=== PATIENT | female | born 1960 | race Caucasian/White ===

== ENCOUNTER 2018-05-23 12:08 | Emergency (ER) | payer MEDICARE, OTHER ==
[2018-05-23 12:29] VITALS: TEMP 98
--- NOTE | 2018-05-23 13:08 | ED ---
General Adult HPI - General Chief complaint: Neck Pain/Injury Stated complaint: fall, neck pain Time Seen by Provider: 05/23/18 12:49 Source: patient, RN notes reviewed Mode of arrival: ambulatory Limitations: no limitations - History of Present Illness Initial comments: Patient 57-year-old female presents emergency room today with a chief complaint of head injury that occurred 23 days ago. She does not that she was at her daughter's house at a green party when she stepped backwards on and off of a step hitting the back of her head. Patient does admit that she has had headaches. At time some nausea and vomiting but not over the last few weeks. States that she is just not felt like herself has been very tired. She states at times had some blurred vision. She denies any other complaints or symptoms. Patient denies any recent fever, chills, shortness of breath, chest pain, back pain, abdominal pain, numbness or tingling, dysuria or hematuria, constipation or diarrhea, or any other complaints. - Related Data Allergies Allergy/AdvReac Type Severity Reaction Status Date / Time cortisone Allergy Rash/Hives Verified 05/23/18 12:30 codeine AdvReac Abdominal Verified 05/23/18 12:30 Pain Review of Systems ROS Statement: Those systems with pertinent positive or pertinent negative responses have been documented in the HPI. ROS Other: All systems not noted in ROS Statement are negative. Past Medical History Past Medical History: Diabetes Mellitus, Hypertension, Thyroid Disorder Additional Past Medical History / Comment(s): Arthritis History of Any Multi-Drug Resistant Organisms: None Reported Past Surgical History: Section, Cholecystectomy, Orthopedic Surgery Past Psychological History: Depression Smoking Status: Never smoker Past Alcohol Use History: None Reported Past Drug Use History: None Reported General Exam - General Exam Comments Initial Comments: General: The patient is awake and alert, in no distress, and does not appear acutely ill. Eye: Pupils are equal, round and reactive to light. Extra-ocular movements are intact. No nystagmus. There is normal conjunctiva bilaterally. No signs of icterus. Ears, nose, mouth and throat: There are moist mucous membranes and no oral lesions. Neck: The neck is supple, there is no tenderness or JVD. Cardiovascular: There is a regular rate and rhythm. No murmur, rub or gallop is appreciated. Respiratory: Lungs are clear to auscultation, respirations are non-labored, breath sounds are equal. No wheezes, stridor, rales, or rhonchi. Musculoskeletal: Normal ROM. Normal appearance of the cervical spinal no step- off deformity. Patient does have tenderness at C1-C2. No tenderness to thoracic or lumbar spine. Sensation intact. Strength 5/5. Pulses equal bilaterally 2+. Neurological: A&O x 3. CN II-XII intact, There are no obvious motor or sensory deficits. Coordination appears grossly intact. Speech is normal. Skin: Skin is warm and dry and no rashes or lesions are noted. Psychiatric: Cooperative, appropriate mood & affect, normal judgment. Limitations: no limitations Course Vital Signs 05/23/18 12:27 Temperature 98.0 F Pulse Rate 90 Respiratory 18 Rate Blood Pressure 200/71 O2 Sat by Pulse 98 Oximetry Medical Decision Making - Medical Decision Making Patient's a CT head neck and negative for any acute abnormality. Does show degenerative changes. Results were discussed with the patient. Sinus symptoms of postconcussion syndrome was discussed with patient in detail. She is advised follow-up with the neurologist on-call. Patient advised to return to emergency room if any symptoms worsen or for any other concerns. Patient's blood pressure was initially elevated here in the emergency room and was discussed with the patient about following up with her family physician abdomen. Recheck. She states she took her lisinopril just prior to coming into the hospital. Disposition Clinical Impression: Postconcussion syndrome Disposition: HOME SELF-CARE Condition: Good Instructions: Post Concussion Syndrome (ED) Additional Instructions: Please use medication as discussed. Please follow-up with family doctor in the next 2 days of symptoms have not improved. Please return to emergency room if the symptoms increase or worsen or for any other concerns. Is patient prescribed a controlled substance at d/c from ED?: No Referrals: Nonstaff,Physician [Primary Care Provider] - 1-2 days Darwin Tripp MD [STAFF PHYSICIAN] - 1-2 days Time of Disposition: 14:40
--- NOTE | 2018-05-23 14:04 | CT ---
EXAMINATION TYPE: CT brain rina berry con DATE OF EXAM: 05/23/2018 COMPARISON: NONE HISTORY: Headache, dizziness, and neck pain post fall. CT DLP: 1035.2 mGycm. Automated Exposure Control for Dose Reduction was Utilized. TECHNIQUE: CT scan of the head and cervical spine are performed without contrast. FINDINGS: There is no acute intracranial hemorrhage, mass effect, or midline shift identified. The ventricles and sulci are within normal limits in size. The globes are intact and the visualized sin uses are clear. Cervical spine is visualized in its entirety from C1 through upper thoracic levels and demonstrates s atisfactory alignment without evidence of acute fracture or dislocation. There is mild multilevel de generative disc disease. Small posterior disc osteophyte complexes seen at C5-C6 and C6-C7. Multileve l uncovertebral hypertrophy and facet arthropathy are seen creating minimal neural foraminal narrowin g on the left at C5-C6. Spinal canal is limited on CT. Prevertebral soft tissue appears within normal limits. The C1-C2 articulation is unremarkable. IMPRESSION: 1. There is no acute fracture or dislocation evident in the cervical spine. 2. No acute intracranial hemorrhage, mass effect, or midline shift is seen. 3. Mild multilevel degenerative disc disease of the cervical spine.
[2018-05-23 14:41] VITALS: BP 159/70; PULSE 69; RESP 16
== END 2018-05-23 14:42 | disposition home or self-care (01) ==
LOC: EC 12:08
DX: F07.81 Postconcussional syndrome (principal); M47.812 Spondylosis without myelopathy or radiculopathy, cervical region; Z90.49 Acquired absence of other specified parts of digestive tract; Z98.890 Other specified postprocedural states; Z88.5 Allergy status to narcotic agent; Z88.8 Allergy status to other drugs, medicaments and biological substances; W01.198A Fall on same level from slipping, tripping and stumbling with subsequent striking against other object, initial encounter; Y92.009 Unspecified place in unspecified non-institutional (private) residence as the place of occurrence of the external cause
CPT/HCPCS: 70450; 72125; 99283

== ENCOUNTER 2018-07-28 12:07 | Emergency (ER) | payer MEDICARE, OTHER ==
--- NOTE | 2018-07-28 14:03 | ED ---
Neck Injury/Pain HPI - General Chief Complaint: Neck Pain/Injury Stated Complaint: Fall Time Seen by Provider: 07/28/18 13:08 Source: RN notes reviewed, old records reviewed Mode of arrival: ambulatory Limitations: no limitations - History of Present Illness Initial Comments: This is a 57-year-old female the ER for evaluation. Patient presents today for evaluation regards to neck pain. Patient has history of chronic pain and does take pain control at home. Patient had a trip and fall where she fell backwards landing on her right shoulder right back and neck. Complaining of right-sided neck pain. MD Complaint: neck pain, neck injury -: days(s) (1) Place: other (Fall) Radiation: right lateral, head, right shoulder Severity: moderate Severity scale (1-10): 4 Quality: aching Consistency: constant Improves With: medication OTC/prescribed, rest supine Worsens With: immobilization Context: fall Associated Symptoms: none Treatments Prior to Arrival: none - Related Data Allergies Allergy/AdvReac Type Severity Reaction Status Date / Time cortisone Allergy Rash/Hives Verified 07/28/18 13:00 codeine AdvReac Abdominal Verified 07/28/18 13:00 Pain Review of Systems ROS Statement: Those systems with pertinent positive or pertinent negative responses have been documented in the HPI. ROS Other: All systems not noted in ROS Statement are negative. Past Medical History Past Medical History: Diabetes Mellitus, Hypertension, Thyroid Disorder Additional Past Medical History / Comment(s): Arthritis History of Any Multi-Drug Resistant Organisms: None Reported Past Surgical History: Section, Cholecystectomy, Orthopedic Surgery Past Psychological History: Depression Smoking Status: Never smoker Past Alcohol Use History: None Reported Past Drug Use History: None Reported General Exam - General Exam Comments Initial Comments: Patient does have right shoulder pain right upper thoracic pain right neck pain. Mild decreased range of motion of neck Limitations: no limitations General appearance: alert, in no apparent distress Head exam: Present: atraumatic, normocephalic, normal inspection Eye exam: Present: normal appearance, PERRL, EOMI. Absent: scleral icterus, conjunctival injection, periorbital swelling ENT exam: Present: normal exam, mucous membranes moist Neck exam: Present: normal inspection. Absent: tenderness, meningismus, lymphadenopathy Respiratory exam: Present: normal lung sounds bilaterally. Absent: respiratory distress, wheezes, rales, rhonchi, stridor Cardiovascular Exam: Present: regular rate, normal rhythm, normal heart sounds. Absent: systolic murmur, diastolic murmur, rubs, gallop, clicks GI/Abdominal exam: Present: soft, normal bowel sounds. Absent: distended, tenderness, guarding, rebound, rigid Extremities exam: Present: normal inspection, full ROM, normal capillary refill. Absent: tenderness, pedal edema, joint swelling, calf tenderness Back exam: Present: normal inspection Neurological exam: Present: alert, oriented X3, CN II-XII intact Psychiatric exam: Present: normal affect, normal mood Skin exam: Present: warm, dry, intact, normal color. Absent: rash Course Vital Signs 07/28/18 13:00 Temperature 98 F Pulse Rate 66 Respiratory 18 Rate Blood Pressure 134/65 O2 Sat by Pulse 94 L Oximetry - Reevaluation(s) Reevaluation #1: 07/28/18 14:27 Medical record is reviewed Medical Decision Making - Medical Decision Making 57-year-old female the ER status post fall mechanical trip and fall yesterday. History of prior fall with neck pain and back pain. Patient has no acute disease on computed tomography scan. Patient can be discharged home - Radiology Data Radiology results: report reviewed (CT brain C-spine and thoracic spine is negative for traumatic injury, patient does have extensive arthritic history), image reviewed Disposition Clinical Impression: Strain of neck muscle, Disc disorder of cervical region, Torticollis, Fall Disposition: HOME SELF-CARE Condition: Good Instructions: Cervical Sprain (ED), Cervical Strain (ED) Is patient prescribed a controlled substance at d/c from ED?: No Referrals: Nonstaff,Physician [Primary Care Provider] - 1-2 days
[2018-07-28] MEDS ORDERED: DIAZEPAM 5 MG TAB PO STA (14:27)
[2018-07-28] MEDS ORDERED: KETOROLAC 60 MG/2 ML VIAL IM STA (14:27)
--- NOTE | 2018-07-28 14:50 | CT ---
EXAMINATION TYPE: CT brain wo con DATE OF EXAM: 07/28/2018 COMPARISON: 05/23/2018 HISTORY: 57-year-old female Fall today with head injury. Head, neck and back pain TECHNIQUE: Examination was done in axial plane without intravenous contrast. Coronal and sagittal r econstructions performed. CT DLP: 1154 mGycm Automated exposure control for dose reduction was used. FINDINGS: There is no evidence of acute intracranial hemorrhage, acute ischemic changes, mass, mass-effect, or extra-axial fluid collection. There is no effacement of cerebral sulci or basal subarachnoid cister ns. There is no hydrocephalus. There is no midline shift. Wooten-white matter distinction is preserv ed. Paranasal sinuses and mastoid air cells well pneumatized. Slight leftward nasal septal deviation. Orb its and globes are intact. No calvarial fracture. IMPRESSION: No acute intracranial abnormality seen.
--- NOTE | 2018-07-28 14:58 | CT ---
EXAMINATION TYPE: CT cervical and thoracic spine wo con DATE OF EXAM: 07/28/2018 COMPARISON: Cervical spine 05/23/2018 HISTORY: 57-year-old female with fall today with head injury. Head, neck and back pain. TECHNIQUE: Contiguous axial scanning of the cervical and thoracic spine without IV contrast. Coronal and sagittal reconstructions performed. CT DLP: 1422 mGycm Automated exposure control for dose reduction was used. FINDINGS: Cervical spine: There is a dextroconvex scoliosis of the thoracic spine with some secondary leftward head tilt. No cranial cervical junction and the body, predental space widening, or prevertebral soft tissue swel ling. Degenerative changes at the C1 dens articulation. Alignment is maintained. No acute fracture identified. There is moderate to advanced disc/endplate de generative change at C5-C7 levels with disc osteophyte complexes likely contributing to at least mild , possibly moderate spinal canal stenoses at these levels. Assessment of the spinal canal is limited due to artifact from the patient's shoulders. Additional multilevel facet and uncovertebral joint arthropathy, particularly on the left, lower cerv ical spine Changes resulting in moderate bilateral neuroforaminal stenoses at C5-C6, mild at C6-C7. Thoracic spine: Groundglass and bandlike areas of atelectasis throughout the lungs. Degenerative changes at the sternoclavicular joints. Dextroscoliosis mid thoracic spine as mentioned above. Bridging anterior endplate spondylosis midthoracic spine compatible with dish. Facet arthropathy at multiple levels and degenerative disc disease greatest at the thoracolumbar junc tion. Vertebral body heights are preserved. Large disc osteophyte complex at T12-L1 probably contributing to moderate spinal canal stenosis. No prevertebral or paravertebral soft tissue abnormality seen. Variable mild neuroforaminal stenoses. Probably mild to moderate at some levels due to the facet arthropathy changes. IMPRESSION: 1. CERVICAL SPINE: MODERATE TO ADVANCED SPONDYLOTIC CHANGE MID TO LOWER CERVICAL SPINE. NO ACUTE FRAC TURE OR MALALIGNMENT. 2. THORACIC SPINE: DEXTROCONVEX SCOLIOSIS MIDTHORACIC SPINE. DISH IN THE MID THORACIC SPINE. MULTILEV EL FACET ARTHROPATHY. LARGE DISC OSTEOPHYTE COMPLEX AT T12-L1 POSSIBLY CONTRIBUTING TO MODERATE SPINA L CANAL STENOSIS. NO ACUTE FRACTURE OR MALALIGNMENT OF THE THORACIC SPINE.
[2018-07-28 15:43] VITALS: BP 162/60; PULSE 61; RESP 16; TEMP 98
== END 2018-07-28 15:48 | disposition home or self-care (01) ==
LOC: EC 12:07
DX: S16.1XXA Strain of muscle, fascia and tendon at neck level, initial encounter (principal); M43.6 Torticollis; M50.90 Cervical disc disorder, unspecified, unspecified cervical region; Z88.8 Allergy status to other drugs, medicaments and biological substances; Z88.5 Allergy status to narcotic agent; W01.0XXA Fall on same level from slipping, tripping and stumbling without subsequent striking against object, initial encounter; Y92.89 Other specified places as the place of occurrence of the external cause
CPT/HCPCS: 72128; 72125; 70450; 99284; 96372; J1885

== ENCOUNTER 2018-08-09 17:55 | Emergency (ER) | payer MEDICARE, OTHER ==
[2018-08-09 18:15] VITALS: BP 184/79; PULSE 76; RESP 18; TEMP 99.3
--- NOTE | 2018-08-09 19:24 | ED ---
General Adult HPI - General Chief complaint: Upper Respiratory Infection Stated complaint: Congestion in chest Time Seen by Provider: 08/09/18 18:15 Source: patient, RN notes reviewed Mode of arrival: ambulatory Limitations: no limitations - History of Present Illness Initial comments: This is a 57-year-old female presents emergency Department complaining of conjunctivitis in both eyes sore throat and a dry cough. Patient denies a fever chills. Patient denies any difficulty breathing shortness breath per patient denies chest pain. Patient denies any abdominal pain patient denies nausea vomiting diarrhea. Patient denies any lightheadedness or dizziness. Patient denies - Related Data Home Medications Medication Instructions Recorded Confirmed Cinnamon Bark [Cinnamon] 500 mg PO DAILY 08/09/18 08/09/18 HYDROcodone/APAP 10-325MG [[place] 1 tab PO BID 08/09/18 08/09/18 10-325] Levothyroxine Sodium [Synthroid] 150 mg PO DAILY 08/09/18 08/09/18 Lisinopril [Zestril] 20 mg PO DAILY 08/09/18 08/09/18 Meloxicam [Mobic] 7.5 mg PO DAILY 08/09/18 08/09/18 Simvastatin [Zocor] 20 mg PO HS 08/09/18 08/09/18 Ubidecarenone [Co Q-10] 100 mg PO DAILY 08/09/18 08/09/18 glyBURIDE [Diabeta] 5 mg PO DAILY 08/09/18 08/09/18 metFORMIN HCL 1,000 mg PO BID 08/09/18 08/09/18 Allergies Allergy/AdvReac Type Severity Reaction Status Date / Time cortisone Allergy Rash/Hives Verified 08/09/18 19:50 codeine AdvReac Abdominal Verified 08/09/18 19:50 Pain latex AdvReac Anaphylaxis Verified 08/09/18 19:51 Review of Systems ROS Statement: Those systems with pertinent positive or pertinent negative responses have been documented in the HPI. ROS Other: All systems not noted in ROS Statement are negative. Past Medical History Past Medical History: Diabetes Mellitus, Hypertension, Thyroid Disorder Additional Past Medical History / Comment(s): Arthritis History of Any Multi-Drug Resistant Organisms: None Reported Past Surgical History: Section, Cholecystectomy, Orthopedic Surgery Past Psychological History: Depression Smoking Status: Never smoker Past Alcohol Use History: None Reported Past Drug Use History: None Reported General Exam - General Exam Comments Initial Comments: GENERAL: Patient is well-developed and well-nourished. Patient is nontoxic and well- hydrated and is in no acute distress. ENT: Neck is soft and supple. No significant lymphadenopathy is noted. Oropharynx is clear. Moist mucous membranes. Neck has full range of motion without eliciting any pain. EYES: The sclera were anicteric and conjunctiva were pink and moist. Extraocular movements were intact and pupils were equal round and reactive to light. Eyelids were unremarkable. PULMONARY: Unlabored respirations. Good breath sounds bilaterally. No audible rales rhonchi or wheezing was noted. CARDIOVASCULAR: There is a regular rate and rhythm without any murmurs gallops or rubs. SKIN: Skin is clear with no lesions or rashes and otherwise unremarkable. NEUROLOGIC: Patient is alert and oriented x3. Cranial nerves II through XII are grossly intact. Motor and sensory are also intact. Normal speech, volume and content. Symmetrical smile. MUSCULOSKELETAL: Normal extremities with adequate strength and full range of motion. LYMPHATICS: No significant lymphadenopathy is noted PSYCHIATRIC: Normal psychiatric evaluation. Limitations: no limitations Course Vital Signs 08/09/18 18:13 Temperature 99.3 F Pulse Rate 76 Respiratory 18 Rate Blood Pressure 184/79 O2 Sat by Pulse 95 Oximetry Medical Decision Making - Medical Decision Making Chest x-ray shows no acute abnormality Disposition Clinical Impression: Conjunctivitis, Viral syndrome Disposition: HOME SELF-CARE Condition: Good Instructions: Upper Respiratory Infection (ED), Conjunctivitis (ED) Is patient prescribed a controlled substance at d/c from ED?: No Referrals: Nonstaff,Physician [Primary Care Provider] - 1-2 days Time of Disposition: 20:31
--- NOTE | 2018-08-09 20:12 | XR ---
EXAMINATION: XR chest 2V DATE AND TIME: 08/09/2018 7:35 PM CLINICAL INDICATION: PHH; Difficulty breathing TECHNIQUE: Departmental protocol COMPARISON: None FINDINGS: The lungs are clear. The pleural spaces are negative. The cardiac silhouette is not enlarged. The remainder of the mediastinal silhouette is unremarkable. The skeletal structures and soft tissues are negative for acute findings. IMPRESSION: NO ACUTE PROCESS.
[2018-08-09] MEDS ORDERED: TOBRAMYCIN 0.3% OPHTH DROPS 5 ML BTL BOTH EYES STA (20:38)
[2018-08-10] MEDS ORDERED: TOBRAMYCIN 0.3% OPHTH DROPS 5 ML BTL BOTH EYES SCH
== END 2018-08-09 20:58 | disposition home or self-care (01) ==
LOC: EC 17:55
DX: B34.9 Viral infection, unspecified (principal); H10.9 Unspecified conjunctivitis; E11.9 Type 2 diabetes mellitus without complications; E07.9 Disorder of thyroid, unspecified; I10 Essential (primary) hypertension; Z79.1 Long term (current) use of non-steroidal anti-inflammatories (NSAID); Z79.84 Long term (current) use of oral hypoglycemic drugs; Z79.899 Other long term (current) drug therapy; Z88.5 Allergy status to narcotic agent; Z91.040 Latex allergy status; Z88.8 Allergy status to other drugs, medicaments and biological substances
CPT/HCPCS: 71046; 87081; 87430; 99283

== ENCOUNTER → 2019-05-09 | Outpatient (CLI) | payer MEDICARE, OTHER ==
[2019-05-09 16:37] LABS: HCT 38.2 % (34.0-46.0); HGB 13.2 gm/dL (11.4-16.0); MCH 30.1 pg (25.0-35.0); MCHC 34.6 g/dL (31.0-37.0); Mean Platelet Volume 5.8; Platelet Count 277 k/uL (150-450); RBC 4.39 m/uL (3.80-5.40); RDW 12.9 % (11.5-15.5); WBC 8.1 k/uL (3.8-10.6)
--- NOTE | 2019-05-09 22:06 | P.HPBAR ---
Bariatric H&P - History & Physicial H&P Date: 05/09/19 History & Physicial: Visit/CC: INITIAL VISIT Patient initial contact: Initial weight: Initial weight in pounds: Height: Initial BMI: Last weight: Current weight: Current weight in pounds: Current BMI: [place] body weight (based on NIH guidelines): Excess body weight loss: The patient is a 58 year-old F who presents for Bariatric Assessment.Patient presents after going to a recent bariatric seminar. Patient is interested in sleeve gastrectomy as a means of surgical weight loss. Her [id number] and sister both underwent Milad-en-Y gastric bypass and he had some degree of complications postoperatively. The patient is a and her late was very against her having a gastric bypass reportedly. Patient suffers from type 2 diabetes, severe osteoarthritis, hypertension. History of previous Open cholecystectomy. Denies DVT or dysphasia. Review of Systems The patient denies any acute changes in his vision or hearing, no dysphagia or odynophagia, no chest pain or shortness of breath, no dysuria or hematuria, no headache, no runny nose, no rectal bleeding or melena, no unexplained weight loss Past Medical History Past Medical History: Diabetes Mellitus, Hypertension, Thyroid Disorder Additional Past Medical History / Comment(s): Arthritis History of Any Multi-Drug Resistant Organisms: None Reported Past Surgical History: Section, Cholecystectomy, Orthopedic Surgery Past Psychological History: Depression Smoking Status: Never smoker Past Alcohol Use History: None Reported Past Drug Use History: None Reported Surgical - Exam Physical exam: General: Well-developed, well-nourished HEENT: Normocephalic, sclerae nonicteric Abdomen: Nontender, nondistended Extremities: No edema Neuro: Alert and oriented Results - Labs 05/09/19 16:08 Bariatric Assessment & Plan (1) Morbid obesity Narrative/Plan: Options of surgical weight loss procedures reviewed in detail. The risks and benefits of gastric bypass, sleeve gastrectomy, lap band detail. Patient remains interested in sleeve gastrectomy. The anticipated weight loss 55-60% excess weight Discussed. We willcontinue preoperative workup. We'll plan upper endoscopy. Status: Acute Bariatric Checklist Checklist: Plan: Checklist: EGD: 1. Hiatal hernia: 2. H. Pylori: HgbA1c: Vitamin D: Smoking: Never smoker Primary care physician referral: Psychiatry clearance: Cardiology clearance: Sleep study: Diet journal: VTE risk score: VTE risk level: Rehab needs at discharge:
[2019-05-10 00:26] LABS: African American GFR (CKD) 109.1 (60.0-200.0); Albumin 4.6 g/dL (3.80-4.90); Albumin/Globulin Ratio 1.84 (1.60-3.17); Calcium 9.5 mg/dL (8.7-10.3); Globulin 2.5 g/dL (1.6-3.3); Total Bilirubin 1.2 mg/dL (0.3-1.2); Total Protein 7.1 g/dL (6.2-8.2)
== END | disposition home or self-care (01) ==
LOC: BARWHC3 13:54
PROVIDERS: ATTEND Surgery
DX: E66.01 Morbid (severe) obesity due to excess calories (principal); Z90.49 Acquired absence of other specified parts of digestive tract; K90.89 Other intestinal malabsorption; E55.9 Vitamin D deficiency, unspecified
CPT/HCPCS: 84425; 80053; 82607; 82746; 83540; 85027; 93005; 36415; G0463; 99211

== ENCOUNTER 2019-10-03 23:43 | Emergency (ER) | payer MEDICARE ==
[2019-10-03] MEDS ORDERED: FUROSEMIDE 10 MG/ML 4 ML VIAL IV SCH (23:45)
--- NOTE | 2019-10-03 23:53 | ED ---
Chest Pain HPI - General Stated Complaint: Difficulty breathing Time Seen by Provider: 10/03/19 23:50 Source: RN notes reviewed, old records reviewed Limitations: no limitations - History of Present Illness Initial Comments: This is a 59-year-old female DF for evaluation presents today for evaluation of some chest pains or palpitations some heart fluttering. No recent travel history no sick contacts no other significant complaints. She has been going to some outpatient evaluations, evaluation looking for any type of heart disease as she has been trying to schedule herself for bariatric surgery. Patient stress test which she believes was normal as well as echocardiogram of her heart. Patient states today she is having maybe springs any weakness palpitations and fluttering in her chest feels a noted recently she's had some edema mainly the tops of her feet or toes getting she is on has been a little harder but she denies any shortness of breath no exertional dyspnea able lay down without difficulty. MD Complaint: chest pain, other -: hour(s) Onset: during rest, during exertion Pain Location: substernal Pain Radiation: none Severity: moderate Severity scale (1-10): 4 Quality: heaviness Consistency: constant Improves With: nothing Worsens With: nothing Anginal Symptoms: diaphoresis, dyspnea Treatments Prior to Arrival: none - Related Data Home Medications Medication Instructions Recorded Confirmed Cinnamon Bark [Cinnamon] 500 mg PO DAILY 08/09/18 05/09/19 HYDROcodone/APAP 10-325MG [[facility] 1 tab PO BID 08/09/18 05/09/19 10-325] Levothyroxine Sodium [Synthroid] 150 mg PO DAILY 08/09/18 05/09/19 Lisinopril [Zestril] 20 mg PO DAILY 08/09/18 05/09/19 Meloxicam [Mobic] 7.5 mg PO DAILY 08/09/18 05/09/19 Simvastatin [Zocor] 20 mg PO HS 08/09/18 05/09/19 Ubidecarenone [Co Q-10] 100 mg PO DAILY 08/09/18 05/09/19 glyBURIDE [Diabeta] 5 mg PO DAILY 08/09/18 05/09/19 metFORMIN HCL 1,000 mg PO BID 08/09/18 05/09/19 Allergies Allergy/AdvReac Type Severity Reaction Status Date / Time cortisone Allergy Rash/Hives Verified 10/04/19 00:03 codeine AdvReac Abdominal Verified 10/04/19 00:03 Pain latex AdvReac Anaphylaxis Verified 10/04/19 00:03 Review of Systems ROS Statement: Those systems with pertinent positive or pertinent negative responses have been documented in the HPI. ROS Other: All systems not noted in ROS Statement are negative. EKG Findings - EKG Comments: EKG Findings:: EKG shows sinus rhythm rate of 72, NM 140, QRS 96, QTC 442 Past Medical History Past Medical History: Diabetes Mellitus, Hypertension, Thyroid Disorder Additional Past Medical History / Comment(s): Arthritis History of Any Multi-Drug Resistant Organisms: None Reported Past Surgical History: Section, Cholecystectomy, Orthopedic Surgery Past Psychological History: Depression Smoking Status: Never smoker Past Alcohol Use History: None Reported Past Drug Use History: None Reported General Exam General appearance: alert, in no apparent distress, anxious Head exam: Present: atraumatic, normocephalic, normal inspection Eye exam: Present: normal appearance, PERRL, EOMI. Absent: scleral icterus, conjunctival injection, periorbital swelling ENT exam: Present: normal exam, mucous membranes moist Neck exam: Present: normal inspection. Absent: tenderness, meningismus, lymp hadenopathy Respiratory exam: Present: normal lung sounds bilaterally. Absent: respiratory distress, wheezes, rales, rhonchi, stridor Cardiovascular Exam: Present: regular rate, normal rhythm, normal heart sounds. Absent: systolic murmur, diastolic murmur, rubs, gallop, clicks GI/Abdominal exam: Present: soft, normal bowel sounds. Absent: distended, tenderness, guarding, rebound, rigid Extremities exam: Present: normal inspection, full ROM, normal capillary refill. Absent: tenderness, pedal edema, joint swelling, calf tenderness Back exam: Present: normal inspection Neurological exam: Present: alert, oriented X3, CN II-XII intact Psychiatric exam: Present: normal affect, normal mood Skin exam: Present: warm, dry, intact, normal color. Absent: rash Course Vital Signs 10/03/19 10/04/19 10/04/19 23:51 00:13 01:06 Temperature 98.9 F Pulse Rate 70 68 Respiratory 18 Rate Blood Pressure 207/70 177/66 173/56 O2 Sat by Pulse 98 Oximetry 10/04/19 02:06 Temperature Pulse Rate 72 Respiratory 18 Rate Blood Pressure 165/66 O2 Sat by Pulse 95 Oximetry - Reevaluation(s) Reevaluation #1: 10/04/19 00:02 Records reviewed patient is without complaint here in the ED updated on findings and ok for discharger Chest Pain MDM - MDM 59 female to the ED co palpitations, multiple [place] abnormalities from recent fasting type diet, patient has lytes replaced, trop and ekg negative, patient feels good for discharge home Disposition Clinical Impression: Morbid obesity, Palpitations, Hypokalemia, Hypomagnesemia Disposition: HOME SELF-CARE Condition: Good Instructions (If sedation given, give patient instructions): Heart Palpitations (ED) Is patient prescribed a controlled substance at d/c from ED?: No Referrals: None,Stated [REFERRING] - 1-2 days
[2019-10-04] MEDS ORDERED: LABETALOL 5 MG/ML VIAL MDV IVP STA (00:02)
[2019-10-04 00:04] VITALS: RESP 18; TEMP 98.9
--- NOTE | 2019-10-04 00:41 | XR ---
EXAMINATION TYPE: XR chest 2V DATE OF EXAM: 10/04/2019 COMPARISON: 08/09/2018 HISTORY: Cough TECHNIQUE: FINDINGS: There is no heart failure nor confluent pneumonic infiltrate. Costophrenic angles are clear . There is small linear density left lower lobe. Bony thorax is intact. IMPRESSION: Mild scarring and subsegmental atelectasis left lower lobe unchanged. No heart failure.
[2019-10-04 00:53] LABS: Basophils % (A) 0 %; Eosinophils # (A) 0.1 k/uL (0-0.7); Eosinophils % (A) 2 %; HCT 37.8 % (34.0-46.0); HGB 12.8 gm/dL (11.4-16.0); Lymphocytes # (A) 1.8 k/uL (1.0-4.8); Lymphocytes % (A) 23 %; MCH 29.1 pg (25.0-35.0); MCHC 33.8 g/dL (31.0-37.0); Mean Platelet Volume 8.1; Monocytes # (A) 0.4 k/uL (0-1.0); Monocytes % (A) 6 %; Neutrophils # (A) 5.2 k/uL (1.3-7.7); Neutrophils % (A) 68 %; Platelet Count 228 k/uL (150-450); RDW 12.6 % (11.5-15.5); WBC 7.6 k/uL (3.8-10.6)
[2019-10-04 01:03] LABS: ALT 20 U/L (4-34); AST 32 U/L (14-36); African American GFR (CKD) >90 (>60 ml/min/1.73 sqM); Alkaline Phosphatase 74 U/L (38-126); Anion Gap 10 mmol/L; Blood Urea Nitrogen 23 mg/dL (7-17); Calcium 9.4 mg/dL (8.4-10.2); Carbon Dioxide 29 mmol/L (22-30); Chloride 96 mmol/L (98-107); Glucose 120 mg/dL (74-99); Magnesium 1.4 mg/dL (1.6-2.3); Non-African American GFR(CKD) >90 (>60 ml/min/1.73 sqM); Potassium 3.1 mmol/L (3.5-5.1); Sodium 135 mmol/L (137-145); Total Bilirubin 0.9 mg/dL (0.2-1.3)
[2019-10-04 01:09] LABS: INR 0.9 (<1.2); Prothrombin Time 9.9 sec (9.0-12.0)
[2019-10-04] MEDS ORDERED: POTASSIUM CHLORIDE ER 20 MEQ TAB.ER PO STA (01:17)
[2019-10-04] MEDS ORDERED: MAGNESIUM OXIDE 400 MG TAB PO STA (01:17)
[2019-10-04 01:18] LABS: Partial Thromboplastin Time 17.8 sec (22.0-30.0)
[2019-10-04 02:07] VITALS: BP 165/66; PULSE 72
== END 2019-10-04 02:06 | disposition home or self-care (01) ==
LOC: EC 23:43
DX: E87.6 Hypokalemia (principal); E83.42 Hypomagnesemia; E66.01 Morbid (severe) obesity due to excess calories; R07.1 Chest pain on breathing; R61 Generalized hyperhidrosis; E11.9 Type 2 diabetes mellitus without complications; I10 Essential (primary) hypertension; E07.9 Disorder of thyroid, unspecified; M19.90 Unspecified osteoarthritis, unspecified site; Z68.43 Body mass index [BMI] 50.0-59.9, adult; Z79.891 Long term (current) use of opiate analgesic; Z79.890 Hormone replacement therapy; Z79.1 Long term (current) use of non-steroidal anti-inflammatories (NSAID); Z79.84 Long term (current) use of oral hypoglycemic drugs; Z79.899 Other long term (current) drug therapy; Z88.8 Allergy status to other drugs, medicaments and biological substances; Z88.5 Allergy status to narcotic agent; Z91.040 Latex allergy status
CPT/HCPCS: 36415; 71046; 80053; 83690; 83735; 83880; 84484; 85025; 85610; 85730; 93005; 99285